=== PATIENT | male | born 2000 | race Caucasian/White ===

== ENCOUNTER 2022-08-18 14:13 | Emergency (ER) | payer OTHER ==
[2022-08-18 14:31] VITALS: BP 144/95; PULSE 74; RESP 18; TEMP 99; BMI 34.3
== END 2022-08-18 16:22 | disposition home or self-care (01) ==
LOC: JER 14:13
DX: B97.4 Respiratory syncytial virus as the cause of diseases classified elsewhere (principal)
CPT/HCPCS: 0241U-QW; 99283-25